=== PATIENT | female | born 2000 | race Hispanic/Latino ===

== ENCOUNTER 2022-02-07 14:54 | Emergency (ER) | payer OTHER ==
[2022-02-07 16:39] LABS: Urine Blood 3+ (Negative); Urine Glucose Negative (Negative); Urine Protein 1+ (Negative); Urine Specific Gravity 1.025 (1.005-1.030)
[2022-02-07 16:41] LABS: Potassium 3.5 mmol/L (3.5-5.1)
[2022-02-07 16:44] LABS: Absolute Lymphocytes (CBC) 2.8 K/uL (0.7-4.9); Hematocrit 37.9 % (36.0-45.0); Lymphocytes % 21.4 % (15.3-44.8); MPV 8.6 fL (7.6-11.3); RBC Red Blood Cell Count 4.92 M/uL (3.86-4.86)
[2022-02-07 17:26] LABS: Urine Bacteria <20 /HPF (<20)
[2022-02-07 17:32] LABS: Urine Specific Gravity/Preg 1.025 (1.005-1.030)
--- NOTE | 2022-02-07 17:35 | RAD REPORT ---
EXAM DESCRIPTION: US - Transvaginal OB - 02/07/2022 5:24 pm CLINICAL HISTORY: Abd cramping, COMPARISON: No comparisons FINDINGS: Single IUP identified. heart tones identified . The heart rate ranged from 75-105 bp m which is low. The crown-rump length measures 7 millimeters which is consistent with 6 week 5 day. Y olk sac is noted measuring 3 millimeters. The right ovary was visualized measuring 3.1 x 1.8 x 2.2 cm with volume of 6.3 cc. Vascular flow is present. The left ovary was not visualized. IMPRESSION: Single IUP with positive heart tones measuring 6 week 5 day with VLADIMIR of 09/28/2022 . Low heart rate identified. This may be transient. Recommend short-term follow-up ultrasound.
--- NOTE | 2022-02-07 17:43 | EDPHYS ---
Physician Documentation [facility] Name: Amber Huddleston Age: 21 yrs Sex: Female : 2000 Arrival Date: 02/07/2022 Time: 14:55 Bed 13 Private MD: ED Physician David Colunga HPI: 02/07 17:55 This 21 yrs old Female presents to ER via Ambulatory with complaints of kb Vaginal Bleeding, + Preg <12wks. 17:55 The patient presents to the emergency department with abdominal pain, described as kb crampy, vaginal bleeding, that is light, with clots. The estimated gestational age is 7 weeks. course: care: private OB physician, Leakage of Fluid: none appreciated, Ultrasound: the patient had an ultrasound, which was normal, Risk/complications: no obvious risks or complications are appreciated. Previous pregnancies: in previous pregnancies patient has had. Associated signs and symptoms: Pertinent positives: abdominal pain, vaginal bleeding. The patient has not experienced similar symptoms in the past. The patient has not recently seen a physician. 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 - Social history:: Smoking status: Patient denies any tobacco usage or history of. ROS: 17:54 Constitutional: Negative for fever, chills, and weight loss. kb 17:54 Abdomen/GI: Positive for abdominal cramps, Negative for abdominal pain, nausea, vomiting, and diarrhea. 17:54 : Positive for vaginal bleeding. 17:54 All other systems are negative. Exam: 17:54 Constitutional: This is a well developed, well nourished patient who is awake, alert, kb and in no acute distress. Head/Face: Normocephalic, atraumatic. ENT: Moist Mucous membranes Cardiovascular: Regular rate and rhythm with a normal S1 and S2. No gallops, murmurs, or rubs. No pulse deficits. Respiratory: Respirations even and unlabored. No increased work of breathing. Talking in full sentences Abdomen/GI: Soft, non-tender. No distention Skin: Warm, dry with normal turgor. Normal color. MS/ Extremity: Pulses equal, no cyanosis. Neurovascular intact. Full, normal range of motion. Neuro: Awake and alert, GCS 15, oriented to person, place, time, and situation. Moves all extremities. Normal gait. Psych: Awake, alert, with orientation to person, place and time. Behavior, mood, and affect are within normal limits. Vital Signs: 15:01 BP 176 / 103; Pulse 100; Resp 16; Temp 97.6; Pulse Ox 100% on R/A; Weight 113.4 kg; hb Height 5 ft. 4 in. (162.56 cm); Pain 2/10; 16:15 BP 128 / 83; Pulse 80; Resp 14 S; Pulse Ox 100% ; jg9 17:15 BP 134 / 84; Pulse 78; Resp 17 S; Pulse Ox 99% ; jg9 17:30 BP 131 / 84; Pulse 82; Resp 17 S; Pulse Ox 98% on R/A; jg9 15:01 Body Mass Index 42.91 (113.40 kg, 162.56 cm) hb MDM: 15:06 Patient medically screened. kb 17:53 Data reviewed: vital signs, nurses notes. Data interpreted: Pulse oximetry: on room air kb is 98 %. Interpretation: normal. Counseling: I had a detailed discussion with the patient and/or guardian regarding: the historical points, exam findings, and any diagnostic results supporting the discharge/admit diagnosis, lab results, radiology results, the need for outpatient follow up, an OB/Gyne specialist, to return to the emergency department if symptoms worsen or persist or if there are any questions or concerns that arise at home. 02/07 15:07 Order name: Abo/rh Typing; Complete Time: 17:24 kb 02/07 15:07 Order name: Basic Metabolic Panel; Complete Time: 17:10 kb 02/07 15:07 Order name: CBC with Diff; Complete Time: 17:24 kb 02/07 15:07 Order name: Quantitative Hcg; Complete Time: 17:10 kb 02/07 16:39 Order name: Urine Dipstick-Ancillary; Complete Time: 16:53 EDMS 02/07 16:51 Order name: Urine --Ancillary (enter results); Complete Time: 17:36 eb 02/07 15:07 Order name: IV Saline Lock; Complete Time: 16:34 kb 02/07 15:07 Order name: Labs collected and sent; Complete Time: 16:34 kb 02/07 15:07 Order name: NPO; Complete Time: 17:47 kb 02/07 15:07 Order name: Urine Dipstick-Ancillary (obtain specimen); Complete Time: 17:47 kb 02/07 15:07 Order name: Urine Test (obtain specimen); Complete Time: 17:47 kb 02/07 15:07 Order name: US Transvaginal Ob; Complete Time: 17:36 kb 02/07 16:53 Order name: Urine Microscopic Only; Complete Time: 17:29 kb Administered Medications: No medications were administered Point of Care Testing: Urine : 16:15 hCG Reading: Positive; Control Reading: Positive; jg9 Disposition: 17:57 Co-signature as Attending Physician, David Colunga MD. rn Disposition Summary: 02/07/22 17:42 Discharge Ordered Location: Home kb Condition: Stable kb Diagnosis - Threatened kb Followup: kb - With: Emergency Department - When: As needed - Reason: Worsening of condition Followup: kb - With: Private Physician - When: 2 - 3 days - Reason: Recheck today's complaints, Continuance of care, Re-evaluation by your physician Discharge Instructions: - Discharge Summary Sheet kb - Threatened Miscarriage, [id number] kb - Vaginal Bleeding During , First Trimester, [id number] kb Forms: - Medication Reconciliation Form kb - Thank You Letter kb - Antibiotic Education kb - Prescription Opioid Use kb Signatures: Dispatcher [employer] Ángela Elizalde, DATACAP DEVELOPER-C DATACAP DEVELOPER-David Granados MD MD rn Baxter, Heather, RN RN hb Gilmore, Jennifer, RN RN jg9
--- NOTE | 2022-02-07 17:43 | ER ---
Nurse's Notes [facility] Name: Amber Huddleston Age: 21 yrs Sex: Female : 2000 Arrival Date: 02/07/2022 Time: 14:55 Bed 13 Private MD: Diagnosis: Threatened Presentation: 02/07 15:01 Chief complaint: Vaginal bleeding and passed a large clot 1 hour ago. Reports she is 7 hb weeks , LMP 7/8, . Coronavirus screen: At this time, the client does not indicate any symptoms associated with coronavirus-19. Ebola Screen: No symptoms or risks identified at this time. Onset of symptoms was February 07, 2022. 15:01 Method Of Arrival: Ambulatory hb 15:01 Acuity: RADAMES 3 hb 15:03 Risk Assessment: Do you want to hurt yourself or someone else? Patient reports no hb desire to harm self or others. 16:00 Initial Sepsis Screen: Does the patient meet any 2 criteria? No. Patient's initial jg9 sepsis screen is negative. Does the patient have a suspected source of infection? No. Patient's initial sepsis screen is negative. Triage Assessment: 16:00 General: Appears in no apparent distress. Behavior is calm, cooperative. Pain: Denies jg9 pain. EENT: No deficits noted. Neuro: No deficits noted. Cardiovascular: No deficits noted. Respiratory: No deficits noted. GI: No deficits noted. : Reports vaginal bleeding that is light flow. Derm: No deficits noted. Musculoskeletal: No deficits noted. 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 - Social history:: Smoking status: Patient denies any tobacco usage or history of. Screenin:48 Abuse screen: Denies threats or abuse. Denies injuries from another. Nutritional jg9 screening: No deficits noted. Tuberculosis screening: No symptoms or risk factors identified. Fall Risk None identified. Assessment: 16:00 Obstetrical Assessment: Patient reports vaginal bleeding . Pain: Denies pain. : jg9 Reports vaginal bleeding that is light flow. 17:00 Reassessment: No changes from previously documented assessment. Patient and/or family jg9 updated on plan of care and expected duration. Pain level reassessed. Patient is alert, oriented x 3, equal unlabored respirations, skin warm/dry/pink. Vital Signs: 15:01 BP 176 / 103; Pulse 100; Resp 16; Temp 97.6; Pulse Ox 100% on R/A; Weight 113.4 kg; hb Height 5 ft. 4 in. (162.56 cm); Pain 2/10; 16:15 BP 128 / 83; Pulse 80; Resp 14 S; Pulse Ox 100% ; jg9 17:15 BP 134 / 84; Pulse 78; Resp 17 S; Pulse Ox 99% ; jg9 17:30 BP 131 / 84; Pulse 82; Resp 17 S; Pulse Ox 98% on R/A; jg9 15:01 Body Mass Index 42.91 (113.40 kg, 162.56 cm) hb Vitals: 16:00 Heart Tones n/a. jg9 ED Course: 14:55 Patient arrived in ED. as 14:57 Ángela Buckley FNP-C is [facility]. kb 14:57 David Colunga MD is Attending Physician. kb 15:03 Triage completed. hb 15:03 Arm band placed on. hb 15:10 Sadaf Durham, BRANDON is Primary Nurse. jg9 16:15 Patient has correct armband on for positive identification. Bed in low position. Call jg9 light in reach. Side rails up X 1. 17:26 US Transvaginal Ob In Process Unspecified. EDMS 17:50 No provider procedures requiring assistance completed. jg9 17:52 IV discontinued. jg9 Administered Medications: No medications were administered Medication: 17:52 VIS not applicable for this client. jg9 Point of Care Testing: Urine : 16:15 hCG Reading: Positive; Control Reading: Positive; jg9 Outcome: 17:42 Discharge ordered by . kb 17:52 Discharged to home ambulatory. jg9 17:52 Condition: stable 17:52 Discharge instructions given to patient, Instructed on discharge instructions, follow up and referral plans. Demonstrated understanding of instructions, follow-up care. 17:53 Patient left the ED. jg9 Signatures: Dispatcher [employer] EDOR Ángela Buckley FNP-C FNP-Suzette Hsu Heather, RN RN hb Sadaf Durham RN RN jg9
[2022-02-07 18:40] VITALS: TEMP 97.6
[2022-02-07 18:50] VITALS: BP 131/84; O2SAT 98
== END 2022-02-07 17:53 | disposition home or self-care (01) ==
LOC: ER 14:54
DX: O20.0 Threatened abortion (principal)
CPT/HCPCS: 36415; 76817; 80048; 81003; 81015; 81025; 84702; 85025; 86900; 86901; 99283